=== PATIENT | female | born 1985 | race American Indian/Alaskan Native ===

== ENCOUNTER 2019-05-31 05:45 | Day surgery (SDC) | payer OTHER, MEDICAID ==
[~2019-05-31 05:45] MED LIST: LACTATED RINGERS 1,000 ML IV SCH
[2019-05-31] MEDS ORDERED: GABAPENTIN 300 MG CAP PO NR (06:00)
[2019-05-31] MEDS ORDERED: CELECOXIB 200 MG CAP PO NR (06:00)
[2019-05-31] MEDS ORDERED: MIDAZOLAM 2 MG/2 ML INJ IV NR (06:00)
[2019-05-31] MEDS ORDERED: BACTERIOSTATIC SODIUM CHLORIDE 0.9% 30 ML VIAL INFILTRATI ONE (06:50)
[2019-05-31] MEDS ORDERED: HYDROmorphone 1 MG/1 ML INJ IV PRN (07:10)
--- NOTE | 2019-05-31 07:11 | Anesthesia Day of Surgery ---
Anesthesia Day of Surgery - Day of Surgery Patient Examined: Yes Patient H&P Reviewed: Yes Patient is NPO: Yes
--- NOTE | 2019-05-31 07:11 | Anesthesia Consultation ---
Anesthesia Consult and Med Hx Date of service: 05/31/19 - Airway Anesthetic Teeth Evaluation: Good ROM Head & Neck: Adequate Mental/Hyoid Distance: Adequate Mallampati Class: Class II Intubation Access Assessment: Probably Good - Pulmonary Exam CTA: Yes - Cardiac Exam Cardiac Exam: RRR - Pre-Operative Health Status ASA Pre-Surgery Classification: ASA2 Proposed Anesthetic Plan: General - Pulmonary Hx Smoking: No Hx Respiratory Symptoms: No (hx PE in 2007; resolved) - Cardiovascular System Hx Hypertension: No Hx Heart Attack/AMI: No - Central Nervous System CVA: No - Gastrointestinal Hx Gastroesophageal Reflux Disease: No - Endocrine Hx Renal Disease: No Hx Liver Disease: No Hx Insulin Dependent Diabetes: No Hx Non-Insulin Dependent Diabetes: No Hx Thyroid Disease: No - Other Systems Hx Obesity: Yes (BMI 45) - Additional Comments Anesthesia Medical History Comments: No hx anesthetic complications.
--- NOTE | 2019-05-31 07:22 | Short Stay Summary ---
Short Stay Documentation Date of service: 05/31/19 Narrative H&P: 33y/o with undesired fertility. Patient is aware of other contraceptive options. She desires permanent sterilization. - History Principal diagnosis: Undesired fertility Past Medical History: other (pulmonary embolism; obesity) Past Surgical History: No surgical history Social history: - Allergies and Medications Current Medications: Allergies No Known Allergies Allergy (Verified 01/16/14 23:28) Home Medications Medication Instructions Recorded Confirmed Last Taken Type Enoxaparin [Lovenox] 40 mg SQ QDAY 01/18/14 01/18/14 Unknown History Fluconazole 1 tab PO DAILY 01/18/14 01/18/14 Unknown History HYDROcodone/APAP 5-325 [Vaughn 1 each PO Q6HR PRN #20 tablet 01/18/14 Unknown Rx 5/325] Ibuprofen [Motrin] 800 mg PO TID PRN #60 tablet 01/18/14 Unknown Rx Valacyclovir HCl [Valacyclovir] 2 tab PO DAILY 01/18/14 01/18/14 01/15/14 History Active Medications Celecoxib (Celebrex) 200 mg PO PREOP NR Stop: 05/31/19 16:00 Gabapentin (Gabapentin) 300 mg PO PREOP NR Stop: 05/31/19 21:00 Hydromorphone HCl (Dilaudid) 0.5 mg IV Q10MIN PRN PRN Reason: Pain , Severe (7-10) Stop: 05/31/19 22:00 Lactated Ringer's (Lactated Ringers) 1,000 mls @ 100 mls/hr IV DIRECT MURALI Midazolam HCl (Versed) 2 mg IV PREOP NR Stop: 05/31/19 21:00 - Physical exam General appearance: no acute distress Integumentary: no rash HEENT: Atraumatic Lungs: Clear to auscultation Breasts: deferred Heart: Regular rate Gastrointestinal: normal Female Genitourinary: deferred Rectal Exam: deferred Extremities: no ischemia Neurological: Normal gait - Brief post op/procedure progress note Date of procedure: 05/31/19 Pre-op diagnosis: undesired fertility Post-op diagnosis: same Procedure: Laparoscopy Bilateral salpingectomy Anesthesia: GETA Surgeon: JEFF SPENCE Estimated blood loss: minimal Pathology: list (bilateral fallopian tubes) Specimen disposition: to lab Condition: stable - Hospital course Hospital course: The patient was admitted at the day of surgery and underwent a laparoscopy and bilateral salpingectomy. Please see operative note for details. Postoperative course was uneventful. - Disposition Condition at discharge: Good Disposition: [id number] TO HOME OR SELFCARE Short Stay Discharge Plan Activity: other (pelvic rest for 1 week) Diet: regular Additional Instructions: Follow-up is not required Follow-up as needed Prescriptions: Ibuprofen [Motrin] 800 mg PO Q8HR PRN #30 tablet PRN Reason: Pain, Mild (1-3) oxyCODONE /ACETAMINOPHEN [Percocet 5/325] 1 tab PO Q6HR PRN #20 tablet PRN Reason: Pain
[2019-05-31] MEDS ORDERED: BUPIVACAINE/PF (0.5%) 5 MG/1 ML 30 ML VIAL INFILTRATI ONE ×2 (07:31→08:16)
[2019-05-31] MEDS ORDERED: PHENYLEPHRINE/NS 1,000 MCG/10 ML SYRINGE (OR USE) IV ONE (07:35)
[2019-05-31] MEDS ORDERED: NEOSTIGMINE 10MG/10 ML INJ MDV ONE (07:35)
[2019-05-31] MEDS ORDERED: ROCURONIUM 50 MG/5 ML INJ IV ONE (07:35)
[2019-05-31] MEDS ORDERED: ONDANSETRON 4 MG/2 ML INJ ONE (07:35)
[2019-05-31] MEDS ORDERED: GLYCOPYRROLATE 0.4 MG/2 ML INJ ONE (07:35)
[2019-05-31] MEDS ORDERED: PROPOFOL 200 MG/20 ML VIAL IV ONE (07:35)
[2019-05-31] MEDS ORDERED: LIDOCAINE MPF (2%) 20 MG/1 ML VIAL 5 ML ONE (07:35)
[2019-05-31] MEDS ORDERED: fentaNYL 250 MCG/5 ML INJ ONE (07:35)
[2019-05-31] MEDS ORDERED: dexAMETHasone 20 MG/5 ML VIAL ONE (07:35)
[2019-05-31] MEDS ORDERED: SODIUM CHLORIDE 0.9% IRR 1,500 ML BOTTLE IR ONE (08:17)
--- NOTE | 2019-05-31 09:06 | Operative Report ---
Operative Report Operative Report: Date of surgery: 10/29/2018 Preoperative diagnosis: Unwanted fertility Postoperative diagnosis: Same as above Procedure: Laparoscopy; bilateral salpingectomy Surgeon: Jaqueline Sevilla M.D. Anesthesia: General endotracheal anesthesia Estimated blood loss: Minimal Findings: Normal tubes and ovaries bilaterally. The uterus demonstrated evidence of a small leiomyomas Pathology: Bilateral fallopian tubes Indication: 33-year-old with undesired fertility. The patient has elected for permanent sterilization. Procedure: The patient was taken to the operating room and given general endotracheal anesthesia without complication. The patient is prepped and draped in a normal sterile fashion. A bivalve speculum was placed in the patient's vagina and a single-tooth tenaculum was placed on the anterior lip of the cervix .A uterine acorn manipulator was placed, and the bivalve speculum was then removed. Attention was then turned to the patient's abdomen where a 5 mm infraumbilical skin incision was then made. A Veress needle was placed and peritoneal entry was verified water-filled syringe. Insufflation of the peritoneal cavity was performed with CO2 gas. A 5 mm trocar was placed and the laparoscope was then inserted. Experience difficulty placing the Optiport. The patient was then placed in Trendelenburg. A 7 mm suprapubic skin incision was then made. Under direct visualization a 7 mm trocar was then placed. An additional left lateral 5 mm trocar was placed under direct visualization. General survey of the patient's abdomen revealed normal tubes and ovaries bilaterally. The uterus demonstrated evidence of small subserosal leiomyomas. Secondary to the patient's habitus the left lateral trocar became dislodged multiple times and had to be replaced. The fallopian tube was then followed out to the fimbriated end. The LigaSure device was used to coagulate and transect the mesosalpinx of the left fallopian tube. The fallopian tube was then excised and removed through the 7 mm trocar port. This was performed on the contralateral side as well. The 7 mm and 5 mm trocars were then removed. The pneumoperitoneum was then released. The 5 mm trocar laparoscope was then removed. The skin incisions were then closed with 4-0 Monocryl. The incisions were injected with quarter percent Marcaine. Dressings were applied to the incision. The vaginal instruments were then removed atraumatically. Then successfully extubated and taken to the recovery room. All sponge laps and needle counts were correct x2.
[2019-05-31] MEDS ORDERED: IBUPROFEN 800 MG TAB PO PRN (09:45)
[2019-05-31 10:10] VITALS: BP 132/74
--- NOTE | 2019-05-31 11:50 | Post Anesthesia Evaluation ---
- Post Anesthesia Evaluation Patient Participated: Yes Airway Patent: Yes Stable Respiratory Function: Yes Nausea/Vomiting: No Temp > 96.8F: Yes Pain Manageable: Yes Adequeate Hydration: Yes Anesthesia Complications: No
== END 2019-05-31 11:00 | disposition home or self-care (01) ==
LOC: OR 05:45
PROVIDERS: ATTEND Obstetrics & Gynecology
DX: Z30.2 Encounter for sterilization (principal); E66.9 Obesity, unspecified; Z68.42 Body mass index [BMI] 45.0-49.9, adult; Z79.899 Other long term (current) drug therapy; Z82.49 Family history of ischemic heart disease and other diseases of the circulatory system; Z83.3 Family history of diabetes mellitus
CPT/HCPCS: 58661; 81025; 88302; J1100; J1170; J2250; J2370; J2405; J2704; J2710; J3010; J7120